=== PATIENT | female | born 1945 | race Hispanic/Latino ===

== ENCOUNTER 2021-03-25 05:25 | Observation (INO) | payer MEDICARE ==
[2021-03-20 14:31] LABS: BASOPHILS # (AUTO) 0.1 (0.0-0.1); BASOPHILS % 0.7 % (0.0-1.0); EOSINOPHILS # (AUTO) 0.3 (0.0-0.4); EOSINOPHILS % 2.6 % (0.0-6.0); HEMATOCRIT 36.4 % (34.2-44.1); HEMOGLOBIN 12.2 g/dL (12.0-16.0); LYMPHOCYTES # (AUTO) 2.1 (1.0-3.2); LYMPHOCYTES % 20.7 % (18.0-39.1); MEAN CORPUSCULAR HEMOGLOBIN 27.7 pg (28-32); MEAN CORPUSCULAR HGB CONC 33.5 g/dL (31-35); MEAN CORPUSCULAR VOLUME 82.5 fL (81-99); MONOCYTES # (AUTO) 0.8 (0.2-0.8); MONOCYTES % 7.7 % (4.4-11.3); NEUTROPHILS # (AUTO) 6.7 (2.1-6.9); NEUTROPHILS % 67.8 % (38.7-80.0); PLATELET COUNT 298 x10e3/uL (140-360); RED BLOOD COUNT 4.41 x10e6/uL (3.6-5.1); RED CELL DISTRIBUTION WIDTH 14.6 % (11.7-14.4)
[2021-03-20 14:55] LABS: ANION GAP 15.4 mmol/L (8-16); BLOOD UREA NITROGEN 12 mg/dL (7-26); BUN/CREATININE RATIO 14 (6-25); CALCIUM 9.6 mg/dL (8.4-10.2); CARBON DIOXIDE 22 mmol/L (22-29); CHLORIDE 102 mmol/L (98-107); CREATININE, SERUM 0.86 mg/dL (0.57-1.11); EST GLOMERULAR FILTRATION RATE > 60 ML/MIN (60-); GLUCOSE 99 mg/dL (74-118); POTASSIUM 4.4 mmol/L (3.5-5.1); SODIUM 135 mmol/L (136-145)
[~2021-03-25] VITALS: Ht 160 cm; Wt 84.4 kg
[~2021-03-25 05:25] MED LIST: ATENOLOL-CHLOR1 EAC1 PO; ATENOLOL50 MG PO; CELEBREX200 MG PO; LATANOPROST2.5 ML OP; LEVOTHYROXINE112 MCG PO; LISINOPRIL10 MG PO; METFORMIN HCL500 MG PO; NEURONTIN100 MG PO; PROTONIX20 MG PO; SIMVASTATIN20 MG PO
[2021-03-25] MEDS ORDERED: CELECOXIB 200 MG CAP ONE (06:09)
[2021-03-25] MEDS ORDERED: DEXAMETHASONE SOD PHOS 10 MG/1 ML VIAL ONE (06:09)
[2021-03-25] MEDS ORDERED: GABAPENTIN 300 MG CAP ONE (06:09)
[2021-03-25] MEDS ORDERED: CEFAZOLIN SOD 1 GM/NS 50ML 100 ML IV ONE (06:10)
[2021-03-25] MEDS ORDERED: SODIUM CHLORIDE 0.9% 500ML 500 ML ONE (07:00)
[2021-03-25] MEDS ORDERED: TRANEXAMIC ACID 1,000 MG/10 ML ML ONE (07:00)
[2021-03-25] MEDS ORDERED: VANCOMYCIN HCL 1,000 MG ONE (07:00)
[2021-03-25] MEDS ORDERED: ROPIVACAINE 246.25 MG, EPINEPHRINE HCL 1:1000 1ML 0.5 MG, CLONIDINE HCL 0.08 MG, KETORO... INJ ONE ×5 (08:00)
[2021-03-25] MEDS ORDERED: KETOROLAC TROMETHAMINE 30 MG/ML VIAL IV PRN (08:45)
[2021-03-25] MEDS ORDERED: ZOLPIDEM TARTRATE 5 MG TAB PO PRN (08:45)
[2021-03-25] MEDS ORDERED: DIPHENHYDRAMINE HCL INJ 50 MG/ML VIAL IV PRN (08:45)
[2021-03-25] MEDS ORDERED: ONDANSETRON HCL INJ 2MG/ML 2ML 2 MG/ML VIAL IV PRN (08:45)
[2021-03-25] MEDS ORDERED: ACETAMINOPHEN 650 MG SUPP PR PRN (08:45)
[2021-03-25] MEDS ORDERED: DOCUSATE SODIUM 100 MG CAP PO PRN (08:45)
[2021-03-25] MEDS ORDERED: HYDROCODONE/APAP 5MG-325MG TAB PO PRN (08:45)
[2021-03-25] MEDS ORDERED: FENTANYL CITRATE/PF 100MCG/2 ML INJ ONE (09:05)
[2021-03-25] MEDS ORDERED: HYDROMORPHONE 1MG/1ML INJ ONE (09:21)
[2021-03-25 09:53] VITALS: BP 133/70
[2021-03-25 10:00] VITALS: BP 133/70
[2021-03-25] MEDS: SODIUM CHLORIDE 0.9% 1000ML 1,000 ML IV SCH ×2 (10:00→20:00)
[2021-03-25] MEDS: ASPIRIN 325 MG TAB PO SCH ×2 (10:38→16:01)
[2021-03-25 12:05] VITALS: BP 114/76
[2021-03-25 15:54] VITALS: BP 128/67
[2021-03-25] MEDS: CELECOXIB 200 MG CAP PO SCH (16:01)
[2021-03-25] MEDS: CEFAZOLIN SOD 1 GM/NS 50ML 50 ML IV SCH ×2 (16:01→23:06)
[2021-03-25] MEDS ORDERED: PROPOFOL IV EMULSION 10 MG/ML 20 ML VIAL ONE (17:25)
[2021-03-25] MEDS ORDERED: LIDOCAINE HCL 2% LOCAL INJ 5 ML SDV VIAL INJ ONE (17:25)
[2021-03-25] MEDS ORDERED: POVIDONE IODINE 0.05% 0.05 % ML PO ONE (17:25)
[2021-03-25] MEDS ORDERED: ONDANSETRON HCL INJ 2MG/ML 2ML 2 MG/ML VIAL ONE (17:25)
[2021-03-25] MEDS ORDERED: SEVOFLURANE INHAL SOLN 250 ML PEN BTL ONE (17:25)
[2021-03-25 20:00] VITALS: BP 100/59
[2021-03-25 20:30] VITALS: BP 100/59
[2021-03-25] MEDS: HYDROCODONE/APAP 7.5MG-325MG 1 EA TAB PO PRN (21:45)
[2021-03-25] MEDS ORDERED: SODIUM CHLORIDE 0.9% 250ML 250 ML ONE (23:10)
[2021-03-26] VITALS: BP 92/52
[2021-03-26] MEDS: SODIUM CHLORIDE 0.9% 1000ML 1,000 ML IV SCH (03:39)
[2021-03-26 04:00] VITALS: BP 97/58
[2021-03-26 04:51] LABS: HEMATOCRIT 31.3 % (34.2-44.1); HEMOGLOBIN 10.3 g/dL (12.0-16.0)
[2021-03-26] MEDS ORDERED: LEVOTHYROXINE SODIUM 100 MCG TAB PO SCH (07:30)
[2021-03-26 07:44] VITALS: BP 98/54
[2021-03-26] MEDS: ASPIRIN 325 MG TAB PO SCH (08:02)
[2021-03-26] MEDS: CEFAZOLIN SOD 1 GM/NS 50ML 50 ML IV SCH (08:02)
[2021-03-26] MEDS: CELECOXIB 200 MG CAP PO SCH (08:02)
[2021-03-26] MEDS: HYDROCODONE/APAP 7.5MG-325MG 1 EA TAB PO PRN (08:03)
[2021-03-26] MEDS ORDERED: ACETAMINOPHEN 1000 MG/100 ML IV PRN (08:45)
[2021-03-26] MEDS ORDERED: PANTOPRAZOLE SOD 40 MG TABEC PO SCH (09:00)
[2021-03-26 09:43] VITALS: BP 98/54
[2021-03-26 11:48] VITALS: BP 109/48
[2021-03-26] MEDS ORDERED: SIMVASTATIN 20 MG TAB PO SCH (21:00)
[2021-03-26] MEDS ORDERED: METFORMIN HCL 500 MG TAB PO SCH (21:00)
[2021-03-26] MEDS ORDERED: GABAPENTIN 100 MG CAP PO SCH (21:00)
== END 2021-03-26 14:17 | disposition home or self-care (01) ==
LOC: OR 05:25 → PACU V 09:27 → MED/SURG 09:42
PROVIDERS: ADMIT Specialist; ATTEND Specialist
DX: M17.11 Unilateral primary osteoarthritis, right knee (principal); E11.9 Type 2 diabetes mellitus without complications; I10 Essential (primary) hypertension; Z20.822 Contact with and (suspected) exposure to COVID-19; Z01.818 Encounter for other preprocedural examination
CPT/HCPCS: 27447; 36415 ×3; 71046; 73560; 80048; 82948 ×2; 85014; 85018; 85025; 86850; 86900; 86920; 93005; 97116 ×2; 97161; 97530 ×2; G0378 ×2; J0171; J0690 ×2; J1100; J1170; J1885; J2795; J3010; J3370; J7040; J7050; S0164; U0002; J2001; J2405